=== PATIENT | female | born 1990 | race African-American/Black ===

== ENCOUNTER 2018-08-25 21:29 | Emergency (ER) | payer MEDICAID, OTHER ==
[~2018-08-25] VITALS: Ht 167.6 cm; Wt 57.0 kg
[~2018-08-25 21:29] MED LIST: PREN-88 PO; PRENATAL VITAMINS
[2018-08-25 21:41] VITALS: BP 111/81
== END 2018-08-26 03:20 | disposition left against medical advice (07) ==
LOC: ER 21:29
DX: Z53.21 Procedure and treatment not carried out due to patient leaving prior to being seen by health care provider (principal)
CPT/HCPCS: 93005

== ENCOUNTER 2020-06-07 16:47 | Observation (INO) | payer OTHER ==
[~2020-06-07] VITALS: Ht 167.6 cm; Wt 54.9 kg
[2020-06-07] MEDS ORDERED: ACETAMINOPHEN 500MG TABLET PO NR (18:15)
[2020-06-07 18:29] LABS: BASOPHILS % 0.3 % (0.0-2.0); EOSINOPHILS % 0.2 % (0.0-5.0); HEMATOCRIT. 31.6 % (36.0-48.0); HEMOGLOBIN. 10.2 g/dL (12.0-16.0); LYMPHOCYTES % 7.4 % (20.0-50.0); MEAN CORPUSCULAR HEMOGLOBIN 25.5 pg (28.0-32.0); MEAN CORPUSCULAR VOLUME 79.2 fL (81.0-99.0); MEAN PLATELET VOLUME 9.2 fl (7.4-10.4); MONOCYTES % 6.9 % (2.0-8.0); NEUTROPHILS % 85.2 % (40.0-76.0); PLATELET 170 x1000/uL (130-400); RED BLOOD CELL COUNT 3.99 mill/uL (4.2-5.4); RED CELL DISTRIBUTION WIDTH 14.3 % (11.6-14.6)
[2020-06-07 18:30] LABS: CLARITY URINE CLOUDY (CLEAR); COLOR URINE YELLOW (YELLOW); KETONES URINE 1+ (NEGATIVE); LEUKOCYTE ESTERASE URINE 3+ (NEGATIVE); NITRITE URINE NEGATIVE (NEGATIVE); OCCULT BLOOD URINE NEGATIVE (NEGATIVE); PH URINE 6.5 (4.5-8.0); PROTEIN URINE NEGATIVE (NEGATIVE); SPECIFIC GRAVITY URINE 1.012 (1.005-1.030); UROBILINOGEN URINE 0.2 E.U./dL (0.2-1.0)
[2020-06-07 18:38] LABS: CHLORIDE 104 mEq/L (98-107)
[2020-06-07 18:44] LABS: D-DIMER 1.53 mg/L FEU (<0.50); INR 0.9; PARTIAL THROMBOPLASTIN TIME 25.7 sec (23.4-31.0); PROTHROMBIN TIME 9.6 sec (9.6-11.0)
== END 2020-06-07 20:40 | disposition home or self-care (01) ==
LOC: 8 EST LDRP 16:47
PROVIDERS: ADMIT Obstetrics & Gynecology; ATTEND Obstetrics & Gynecology
DX: O99.891 Other specified diseases and conditions complicating pregnancy (principal); R51.9 Headache, unspecified; Z3A.34 34 weeks gestation of pregnancy
CPT/HCPCS: 36415; 59025; 80053; 81003; 84550; 85025; 85379; 85384; 85610; 85730; G0378; 99281

== ENCOUNTER 2020-07-15 13:38 | Inpatient (IN) | payer MEDICAID ==
[~2020-07-15] VITALS: Ht 167.6 cm; Wt 73.0 kg
[2020-07-15] MEDS ORDERED: METHYLERGONOVINE MALEATE 0.2 MG/ML IM PRN (14:15)
[2020-07-15] MEDS ORDERED: MISOPROSTOL 100MCG TABLET VG SCH (14:15)
[2020-07-15] MEDS ORDERED: NALOXONE HCL 0.4 MG/ML 1ML VIAL IM PRN (14:15)
[2020-07-15] MEDS ORDERED: DEXT 5%/LR + PITOCIN 20UNITS/L 1,000 ML IV SCH ×2 (14:15→19:15)
[2020-07-15] MEDS ORDERED: CARBOPROST TROMETHAMINE 250 MCG/ML AMPUL IM PRN (14:15)
[2020-07-15] MEDS: LACTATED RINGERS 1,000 ML IV SCH ×2 (14:45→16:56)
[2020-07-15 15:21] LABS: CLARITY URINE CLEAR (CLEAR); COLOR URINE YELLOW (YELLOW); KETONES URINE NEGATIVE (NEGATIVE); LEUKOCYTE ESTERASE URINE TRACE (NEGATIVE); NITRITE URINE NEGATIVE (NEGATIVE); OCCULT BLOOD URINE NEGATIVE (NEGATIVE); PROTEIN URINE NEGATIVE (NEGATIVE); SPECIFIC GRAVITY URINE 1.009 (1.005-1.030); UROBILINOGEN URINE 0.2 E.U./dL (0.2-1.0)
[2020-07-15 15:26] LABS: BASOPHILS % 0.6 % (0.0-2.0); EOSINOPHILS % 0.5 % (0.0-5.0); HEMOGLOBIN. 9.4 g/dL (12.0-16.0); LYMPHOCYTES % 20.9 % (20.0-50.0); MEAN CORPUSCULAR VOLUME 77.6 fL (81.0-99.0); MEAN PLATELET VOLUME 10.1 fl (7.4-10.4); MONOCYTES % 4.5 % (2.0-8.0); NEUTROPHILS % 73.5 % (40.0-76.0); PLATELET 171 x1000/uL (130-400); RED BLOOD CELL COUNT 3.74 mill/uL (4.2-5.4); RED CELL DISTRIBUTION WIDTH 15.7 % (11.6-14.6)
[2020-07-15 15:28] LABS: INR 0.9; PARTIAL THROMBOPLASTIN TIME 24.5 sec (23.4-31.0); PROTHROMBIN TIME 9.4 sec (9.6-11.0)
[2020-07-15 15:30] LABS: *AMPHETAMINES SCREEN URINE NEGATIVE (NEGATIVE); *BARBITURATES SCREEN URINE NEGATIVE (NEGATIVE); *BENZODIAZEPINES SCREEN URINE NEGATIVE (NEGATIVE); *COCAINE SCREEN URINE NEGATIVE (NEGATIVE)
[2020-07-15 15:31] LABS: CANNABINOID URINE SCREEN NEGATIVE (NEGATIVE); METHADONE URINE SCREEN NEGATIVE (NEGATIVE); OPIATES URINE SCREEN NEGATIVE (NEGATIVE); PHENCYCLIDINE URINE SCREEN NEGATIVE (NEGATIVE)
[2020-07-15 15:57] LABS: HEPATITIS B SURFACE ANTIGEN NEGATIVE
[2020-07-15] MEDS ORDERED: FENTANYL CITRATE/PF 50MCG/ML 2ML VIAL ONE (18:18)
[2020-07-15] MEDS ORDERED: MORPHINE SULFATE/PF 1MG/ML 10ML AMP ONE (18:19)
[2020-07-15] MEDS ORDERED: MEPERIDINE HCL/PF 25MG/ML CPJ IV PRN (19:00)
[2020-07-15] MEDS ORDERED: LABETALOL 5MG/ML SYR 20 MG/4 ML SYRINGE IV PRN (19:00)
[2020-07-15] MEDS ORDERED: ONDANSETRON HCL 4MG/2ML INJ IV PRN ×2 (19:00→19:15)
[2020-07-15] MEDS ORDERED: DIPHENHYDRAMINE 25MG CAPSULE PO PRN ×2 (19:00→19:15)
[2020-07-15] MEDS ORDERED: BUTORPHANOL TARTRATE 2 MG/ML VIAL IM PRN (19:00)
[2020-07-15] MEDS ORDERED: HYDROMORPHONE HCL/PF 2MG/ML CPJ IV PRN (19:00)
[2020-07-15] MEDS ORDERED: IBUPROFEN 400MG TABLET PO PRN (19:15)
[2020-07-15] MEDS ORDERED: HYDROCODONE/ACETAMINOPHEN 5/325MG TABLET PO PRN (19:15)
[2020-07-15] MEDS ORDERED: BISACODYL 10MG SUPP PR PRN (19:15)
[2020-07-15] MEDS ORDERED: HEMORRHOIDAL SUPP PR PRN (19:15)
[2020-07-15] MEDS ORDERED: KETOROLAC 30MG/ML VIAL IV NR (19:49)
[2020-07-15] MEDS ORDERED: LABETALOL HCL 100MG TABLET PO STA (21:03)
[2020-07-15] MEDS ORDERED: LABETALOL HCL 100MG TABLET ONE (21:21)
[2020-07-15 22:00] VITALS: BP 169/100
[2020-07-15 23:30] VITALS: BP_SYST 152; BP_SYST 155; BP_DIAS 106; BP_DIAS 110
[2020-07-16] VITALS (14 sets, daily range): BP systolic 131–160; BP diastolic 86–110
[2020-07-16] MEDS: MAGNESIUM 4 G PREMIX 100 ML IV NR ×2 (00:38→20:49)
[2020-07-16] MEDS ORDERED: MAGNESIUM 20 G PREMIX (L & D) 500 ML IV SCH (01:00)
[2020-07-16 06:32] LABS: BASOPHILS % 0.2 % (0.0-2.0); EOSINOPHILS % 0.2 % (0.0-5.0); HEMOGLOBIN. 10.8 g/dL (12.0-16.0); LYMPHOCYTES % 9.8 % (20.0-50.0); MEAN CORPUSCULAR HEMOGLOBIN 25.3 pg (28.0-32.0); MEAN CORPUSCULAR VOLUME 76.9 fL (81.0-99.0); MEAN PLATELET VOLUME 9.5 fl (7.4-10.4); MONOCYTES % 4.3 % (2.0-8.0); NEUTROPHILS % 85.5 % (40.0-76.0); PLATELET 166 x1000/uL (130-400); RED BLOOD CELL COUNT 4.29 mill/uL (4.2-5.4); RED CELL DISTRIBUTION WIDTH 15.5 % (11.6-14.6)
[2020-07-16] MEDS: MAGNESIUM/ALUMINUM HYDROXIDE/SIMETHICONE 30ML UDC PO SCH ×4 (08:27→20:49)
[2020-07-16] MEDS: SIMETHICONE 80MG TABLET CHEW PO SCH ×4 (08:27→20:49)
[2020-07-16] MEDS: FERROUS SULFATE 325MG TABLET PO SCH ×3 (08:27→18:56)
[2020-07-16] MEDS: PRENATAL VIT/FE FUMARATE/FA TABLET PO SCH (08:27)
[2020-07-16] MEDS ORDERED: LABETALOL HCL 100MG TABLET ONE (08:32)
[2020-07-16] MEDS ORDERED: LABETALOL HCL 100MG TABLET PO SCH (09:00)
[2020-07-16] MEDS: LACTATED RINGERS 1,000 ML IV SCH ×2 (11:48→22:24)
[2020-07-16] MEDS: LABETALOL HCL 100MG TABLET PO SCH ×2 (14:02→18:55)
[2020-07-16] MEDS: DOCUSATE SODIUM 100MG CAPSULE PO SCH (20:49)
[2020-07-17] VITALS (7 sets, daily range): BP systolic 123–139; BP diastolic 80–95
[2020-07-17] MEDS: IBUPROFEN 800MG TABLET PO PRN ×3 (01:06→17:59)
[2020-07-17] MEDS ORDERED: BISACODYL 10MG SUPP PR NR (06:45)
[2020-07-17] MEDS: FERROUS SULFATE 325MG TABLET PO SCH ×3 (07:30→17:59)
[2020-07-17] MEDS: MAGNESIUM/ALUMINUM HYDROXIDE/SIMETHICONE 30ML UDC PO SCH ×3 (08:25→17:30)
[2020-07-17] MEDS: PRENATAL VIT/FE FUMARATE/FA TABLET PO SCH (08:26)
[2020-07-17] MEDS: SIMETHICONE 80MG TABLET CHEW PO SCH ×3 (08:26→17:30)
[2020-07-17] MEDS: LABETALOL HCL 100MG TABLET PO SCH ×3 (08:26→18:00)
[2020-07-18 03:37] VITALS: BP 145/90
[2020-07-18] MEDS: MAGNESIUM/ALUMINUM HYDROXIDE/SIMETHICONE 30ML UDC PO SCH ×2 (03:40→08:20)
[2020-07-18] MEDS: DOCUSATE SODIUM 100MG CAPSULE PO SCH (03:40)
[2020-07-18] MEDS: SIMETHICONE 80MG TABLET CHEW PO SCH ×2 (03:40→08:20)
[2020-07-18] MEDS: IBUPROFEN 800MG TABLET PO PRN ×2 (03:41→08:33)
[2020-07-18 07:31] VITALS: BP 137/90
[2020-07-18] MEDS ORDERED: LABE100T5 PO (08:24)
[2020-07-18] MEDS ORDERED: IBUP-2030 MT (08:24)
[2020-07-18] MEDS: PRENATAL VIT/FE FUMARATE/FA TABLET PO SCH (08:32)
[2020-07-18] MEDS: LABETALOL HCL 100MG TABLET PO SCH (08:33)
[2020-07-18] MEDS: FERROUS SULFATE 325MG TABLET PO SCH (08:34)
== END 2020-07-18 11:20 | disposition home or self-care (01) | DRG 540 ==
LOC: OBSVTOIN 13:38 → 8 EST LDRP 13:38 → 8EST 21:50
PROVIDERS: ADMIT Obstetrics & Gynecology; ATTEND Obstetrics & Gynecology
PROC: 10D00Z1 Extraction of Products of Conception, Low, Open Approach (ICD-10-PCS; principal; 2020-07-15)
DX: O13.4 Gestational [pregnancy-induced] hypertension without significant proteinuria, complicating childbirth (principal); O34.211 Maternal care for low transverse scar from previous cesarean delivery; O90.81 Anemia of the puerperium; Z20.822 Contact with and (suspected) exposure to COVID-19; D62 Acute posthemorrhagic anemia; Z37.0 Single live birth; Z3A.40 40 weeks gestation of pregnancy
CPT/HCPCS: 36415; 80305; 81003; 83735; 85025; 86592; 86703; 86762; 86850; 86900; 86920; 87340; 87426; 88307; 99281; C1893; J1885; J2274; J2405; J2590; J3010; J3475; A4315

== ENCOUNTER 2020-08-16 15:28 | Emergency (ER) | payer MEDICAID, OTHER ==
[~2020-08-16] VITALS: Ht 167.6 cm; Wt 64.0 kg
[~2020-08-16 15:28] MED LIST changes: +IBUP-2030 MT; +LABE100T5 PO
[2020-08-16] MEDS ORDERED: SODIUM CHLORIDE 0.9% 1,000 ML IV ONE (16:30)
[2020-08-16 17:01] LABS: CLARITY URINE CLOUDY (CLEAR); COLOR URINE YELLOW (YELLOW); KETONES URINE TRACE (NEGATIVE); LEUKOCYTE ESTERASE URINE 3+ (NEGATIVE); NITRITE URINE NEGATIVE (NEGATIVE); OCCULT BLOOD URINE TRACE (NEGATIVE); PROTEIN URINE 1+ (NEGATIVE); SPECIFIC GRAVITY URINE 1.017 (1.005-1.030); UROBILINOGEN URINE 0.2 E.U./dL (0.2-1.0)
[2020-08-16 17:05] LABS: BASOPHILS % 0.1 % (0.0-2.0); EOSINOPHILS % 1.5 % (0.0-5.0); HEMATOCRIT. 35.9 % (36.0-48.0); HEMOGLOBIN. 11.2 g/dL (12.0-16.0); MEAN CORPUSCULAR HEMOGLOBIN 23.5 pg (28.0-32.0); MEAN CORPUSCULAR VOLUME 75.3 fL (81.0-99.0); MEAN PLATELET VOLUME 8.6 fl (7.4-10.4); MONOCYTES % 6.2 % (2.0-8.0); NEUTROPHILS % 82.2 % (40.0-76.0); PLATELET 210 x1000/uL (130-400); RED BLOOD CELL COUNT 4.77 mill/uL (4.2-5.4); RED CELL DISTRIBUTION WIDTH 15.8 % (11.6-14.6)
[2020-08-16 17:14] LABS: CHLORIDE 102 mEq/L (98-107)
[2020-08-16 19:08] VITALS: BP 118/74
== END 2020-08-16 19:00 | disposition home or self-care (01) ==
LOC: ER 15:28
DX: N39.0 Urinary tract infection, site not specified (principal); N61.0 Mastitis without abscess; E86.0 Dehydration; Z98.890 Other specified postprocedural states
CPT/HCPCS: 36415; 80053; 81003; 81025; 83605; 85025; 87040; 93005; 96360; 99285; J7030; Z7610